=== PATIENT | male | born 1995 | race Hispanic/Latino ===

== ENCOUNTER 2018-12-22 22:13 | Emergency (ER) | payer SELFPAY ==
[2018-12-22 23:03] LABS: Absolute Lymphocytes (CBC) 2.4 K/uL (0.7-4.9); Hematocrit 43.6 % (39.6-49.0); Lymphocytes % 30.3 % (15.3-44.8); MPV 10.2 fL (7.6-11.3); RBC Red Blood Cell Count 5.19 M/uL (4.33-5.43)
[2018-12-22 23:15] LABS: Potassium 3.6 mmol/L (3.5-5.1)
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
[2018-12-23 03:05] VITALS: BP 121/70; TEMP 98.4; O2SAT 96
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
== END 2018-12-23 00:44 | disposition home or self-care (01) ==
LOC: ER 22:13
DX: S20.229A Contusion of unspecified back wall of thorax, initial encounter (principal); S80.819A Abrasion, unspecified lower leg, initial encounter; V03.90XA Pedestrian on foot injured in collision with car, pick-up truck or van, unspecified whether traffic or nontraffic accident, initial encounter; Z72.0 Tobacco use
CPT/HCPCS: 36415; 70450; 71260; 72125; 74177; 80048; 85025; 86850; 86900; 86901; Q9967